=== PATIENT | male | born 1975 | race Caucasian/White ===

== ENCOUNTER → 2024-01-30 12:36 | Outpatient (CLI) | payer OTHER, SELFPAY ==
--- NOTE | 2024-01-30 12:38 | DI.MRI.S_ITS ---
PROCEDURE: MR ANKLE LT WO CON INDICATIONS: Pain in left ankle and joints of left foot TECHNIQUE: Noncontrast sagittal T1 spin echo and T2 fast spin echo with fat saturation, axial proton density fast spin echo and T2 fast spin echo with fat saturation, coronal T1 spin echo and T2 fast spin echo with fat saturation through the ankle/hindfoot. COMPARISON: None. FINDINGS: Image quality: Excellent. Tendons: The flexors, peroneals, and extensor tendons are unremarkable. Mild tendinosis of the distal Achilles tendon with low grade interstitial tear. Ligaments: Tear of the anterior tibiofibular ligament. The posterior tibiofibular ligament is intact. The anterior and the posterior talofibular ligament are intact. The calcaneofibular ligament is not visualized. Prior sprain of the deep portion of the deltoid ligament. Sinus tarsi: No fibrosis. Plantar fascia: Thickening of the central cord of the plantar fascia, presenting plantar fasciitis. There is a small plantar calcaneal osteophyte with associated marrow edema, representing enthesitis. Muscles: Unremarkable Bones: Unremarkable. No acute fracture. Mild subchondral cystic changes seen the tibial plafond, degenerative. Other findings: No significant acute talar or posterior subtalar effusion. IMPRESSION: 1. Mild tendinosis of the distal Achilles tendon, with low grade interstitial tear. 2. Plantar fasciitis with small plantar calcaneal enthesophyte and enthesitis. 3. 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 4. Prior injury of the lateral and medial ankle ligament as described below. Dictated by: Hyacinth Noyola M.D. on 01/30/2024 at 18:54 Approved by: Hyacinth Noyola M.D. on 01/30/2024 at 19:02
== END ==
LOC: MRI 12:38
PROVIDERS: Referring Provider Podiatrist; Visit Provider Podiatrist
DX: S86.012A Strain of left Achilles tendon, initial encounter (principal); M72.2 Plantar fascial fibromatosis; M77.32 Calcaneal spur, left foot; M25.572 Pain in left ankle and joints of left foot; R26.2 Difficulty in walking, not elsewhere classified
CPT/HCPCS: 73721

== ENCOUNTER → 2025-04-14 12:42 | Outpatient (CLI) | payer OTHER, SELFPAY | DX: R20.0 Anesthesia of skin (principal) | CPT/HCPCS: 95885; 95909 ==